=== PATIENT | female | born 1990 | race Caucasian/White ===

== ENCOUNTER 2025-02-15 12:47 | Emergency (ER) | payer MEDICAID, SELFPAY ==
[2025-02-15 12:57] VITALS: BP 115/77; PULSE 56; RESP 14; TEMP 36.4; O2SAT 99; BMI 24.3
--- NOTE | 2025-02-15 13:49 | XRR_ITS ---
PROCEDURE INFORMATION: Exam: XR Lumbosacral Spine Exam date and time: 02/15/2025 2:05 PM Age: 35 years old Clinical indication: Low back pain; Additional info: Chronic back pain TECHNIQUE: Imaging protocol: Radiologic exam of the lumbosacral spine. Views: 2 or 3 views. COMPARISON: CR XR thoracic spine 3V* [id number] 02/15/2025 1:59 PM FINDINGS: Bones/joints: Intact. No acute fracture. Normal alignment. Soft tissues: Unremarkable. XR/XR lumbar spine 2-3V* [id number] IMPRESSION: No acute findings.
--- NOTE | 2025-02-15 13:49 | XRR_ITS ---
PROCEDURE INFORMATION: Exam: XR Thoracic Spine Exam date and time: 02/15/2025 1:59 PM Age: 35 years old Clinical indication: Pain in thoracic spine; Additional info: Chronic back pain TECHNIQUE: Imaging protocol: Radiologic exam of the thoracic spine. Views: 3 views. COMPARISON: No relevant prior studies available. FINDINGS: Bones/joints: Intact. No acute fracture. Normal alignment. Soft tissues: Unremarkable. XR/XR thoracic spine 3V* [id number] IMPRESSION: No acute findings.
--- NOTE | 2025-02-15 13:50 | W.ED.GENADLT ---
HPI - General Adult General: Chief complaint: Back Pain/Injury Stated complaint: lump on R side, tingling in L hand Time Seen by Provider: 02/15/25 13:10 Source: patient Mode of arrival: ambulatory Limitations: no limitations History of Present Illness: Patient is a 35-year-old male presents to ED today with a plethora of medical complaints. She comes in with an outpatient order form for lumbar XRs from her primary care provider. She states for many years she has been having pain to her mid back. She reportedly spoke to her primary care provider about this. Her outpatient order form is for lumbar XRs which she seems frustrated with as her symptoms are more thoracic. She is requesting MRI imaging today. She also complains of a lump near her right ribs. She states she has nervelike pain when she bends over. She has been seen for this before and told that it is a lipoma. She also complains of migraine headaches. She states she used to see a neurologist in [place] but recently moved to the area. She has spoken to primary care about a referral to neurology and she believes she does have one of these placed but states they are booked up for a while . She has a complaint of bilateral hand paresthesias that reportedly started today although they are improving at time of my examination. Initially tells me that she felt this was secondary to a possible panic attack earlier but then later tells me it was her friend that suggested this could be the etiology and she, herself, does not believe this as she does not feel anxious. Again this are improving at time of examination. She also is having neurologic symptoms reporting an incident the other day when she sat her phone down and completely forgot or unrealized she had done this and then walked right past it and searched frantically for it before finding it. She also is having some right shoulder pain and right hip pain. Onset (ago): unknown (differing chronicity is based on complaint) Associated symptoms: Reports no associated symptoms and headache(s) (hx of migraines); Deny chest pain, confusion, dyspnea, nausea, palpitations, syncope or vomiting Related Data Home Medications ?Medication ?Instructions ?Recorded ?Confirmed zxhnemb-bnetkzzwguyhq-rgnqwdmq 250 3 tab PO Q6H PRN Headache 02/15/25 02/15/25 mg-250 mg-65 mg tablet (Excedrin Migraine) propranolol 60 mg capsule,24 60 mg PO DAILY 02/15/25 02/15/25 hr,extended release rizatriptan 10 mg disintegrating See Rx Instructions .Route 02/15/25 02/15/25 tablet .COMPLEX PRN Migraine Headache Allergies Allergy/AdvReac Type Severity Reaction Status Date / Time No Known Allergies Allergy Verified 02/15/25 13:02 Review of Systems Const: Denies: fever(s), chills or body aches Eyes: Denies: change in vision or blurry vision Card: Denies: chest pain, palpitations, lightheadedness, syncope or pre-syncope Resp: Denies: dyspnea GI: Denies: nausea or vomiting : Denies: flank pain, dysuria or hematuria Musc: Reports: back pain, joint pain (R shoulder, R hip) and other (hand paresthesias); Denies: neck pain, extremity pain, extremity swelling, joint swelling, joint redness, joint warmth, joint stiffness, limited range of motion, muscle cramps or muscle weakness Neuro: Reports: headache(s) (hx of migraines); Denies: weakness in extremities, lack of coordination, frequent falls, dizziness, confusion, behavioral changes, Slurred speech present, difficulty communicating thoughts, seizure-like activity or involuntary movements Physical Exam Const: COMMON NORMALS: no acute distress, average body habitus, patient oriented x3, no limitations, healthy appearing, alert and well nourished GENERAL APPEARANCE: cooperative ORIENTATION/CONSCIOUSNESS: Yes awake, Yes oriented to person, Yes oriented to place and Yes oriented to time OTHER: wearing sunglasses during entire examination HENMT: COMMON NORMALS: normocephalic and atraumatic HEAD & SCALP: normal to inspection, normocephalic and atraumatic FACE & SINUS: face symmetric Neck/C-Spine: COMMON NORMALS: full ROM, no lymphadenopathy, supple and no meningeal signs Chest: COMMONS NORMALS: normal inspection of the chest OTHER: pt has a benign appearing lipoma to R lateral chest wall Resp: COMMON NORMALS: normal respiratory effort and clear to auscultation bilaterally AUSCULTATION: clear to auscultation bilaterally Cardio: COMMON NORMALS: regular rate and regular rhythm RATE: regular rate RHYTHM: regular rhythm : COMMON NORMALS: Yes no CVA tenderness BLADDER/KIDNEY EXAM: Yes no CVA tenderness Back/Pelvis: COMMON NORMALS: no CVA tenderness, thoracic and lumbar spine normal to inspection, thoraco-lumbar ROM normal and straight leg raise negative bilaterally THORACIC SPINE/UPPER BACK: Yes thoracic spinal tenderness and Yes paraspinal muscle tenderness LUMBAR SPINE/LOWER BACK: No lumbar spinal tenderness, No paraspinal muscle tenderness and No paraspinal muscle spasm PELVIS: Yes buttocks normal and No sciatic notch tenderness SACROILIAC JOINTS: Yes SI joints normal SACRUM: no tenderness COCCYX: no tenderness Extremity: COMMON NORMALS: normal to inspection, full ROM and capillary refill normal GENERAL: Yes normal exam except as noted Neuro: NEGRITO COMA SCALE: document GCS findings [place] coma scale eye opening: Spontaneous [place] coma scale verbal response: Orientated [place] coma scale motor response: Obey commands [place] coma scale total score: 15 COMMON NORMALS: patient oriented x3, CN's II-XII intact bilaterally, moves all extremities, no focal motor deficits, no sensory deficits noted and gait normal SENSORIUM/ORIENTATION: Yes alert, Yes oriented to person, Yes oriented to place and Yes oriented to time MENINGEAL SIGNS: Yes no meningeal signs Skin: COMMON NORMALS: no rashes or lesions noted NARRATIVE SKIN EXAM: lipoma R lateral chest wall GENERAL SKIN EXAM: no rashes or lesions noted Course Vital Signs: Vital signs: Vital Signs Temperature 97.6 F 02/15/25 12:57 Pulse Rate 56 L 02/15/25 12:57 Respiratory Rate 14 02/15/25 12:57 Blood Pressure 115/77 02/15/25 12:57 Pulse Oximetry 99 02/15/25 12:57 Oxygen Delivery Me thod Room Air 02/15/25 12:57 [facility] - General Adult Medical Decision Making Patient here for multiple medical complaints-none of which sound emergent or life-threatening. She did have XRs of her thoracic and lumbar spine performed here. Personal interpretation of these is unremarkable. Recommend she follow-up with primary care for further evaluation of her many symptoms. Medical Records I reviewed the patient's medical records. Lab Data Radiology Impressions Lumbar Spine X-Ray 02/15/25 13:49 IMPRESSION: No acute findings. Thoracic Spine X-Ray 02/15/25 13:49 IMPRESSION: No acute findings. XR interpretation done by ED provider, pending radiology final review Discharge Plan Discharge Patient Disposition: Home Clinical Impression: Multiple complaints, Chronic mid back pain, Lipoma of lateral chest wall Condition: Stable Prescriptions: No Action propranolol 60 mg Capsule,Extended Release 24 Hr 60 mg PO DAILY rizatriptan 10 mg Tablet,Disintegrating See Rx Instructions .ROUTE .COMPLEX PRN (Reason: Migraine Headache) Rx Instructions: Dissolve 1 tablet on top of tongue at onset of headache. May repeat in 1 hour. Max 2 tablets in 24 hours. Excedrin Migraine 250-250-65 mg Tablet 3 tab PO Q6H PRN (Reason: Headache) Discharge Orders: Discharge ED (Routine); Ordered 02/15/25 Ordered By: Heidi Ortiz Referrals: Belle Morillo FNP [Primary Care Provider] - Activity Restrictions/Additional Instructions: You mentioned several physical complaints on today's visit including back pain, right shoulder pain, right hip pain, migraines, hand paresthesias, lipoma to your chest wall, and neurologic concerns. Most of these complaints would be best addressed by your primary care provider. From the emergency department, we screen and treat for emergent or life threatening conditions. The x-rays of your back today were unremarkable. 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
--- NOTE | 2025-02-15 14:16 | PC.PHAR ---
Pt states she also takes something twice daily for anxiety, that starts with Traz-----but neither [facility] in [place] or [facility] [place] have any record of it. Pt also said she used marijuana today to attempt stopping headache.
== END 2025-02-15 14:54 | disposition home or self-care (01) ==
PROVIDERS: Emergency Provider Physician Assistant; PCP Nurse Practitioner Family
DX: M54.9 Dorsalgia, unspecified (principal); D17.1 Benign lipomatous neoplasm of skin and subcutaneous tissue of trunk
CPT/HCPCS: 72072; 72100; 99283

== ENCOUNTER → 2025-03-06 15:01 | Outpatient (BNVA) | payer MEDICAID, SELFPAY | PROVIDERS: PCP Nurse Practitioner Family | DX: R53.83 Other fatigue (principal) | CPT/HCPCS: 86308 ==

== ENCOUNTER 2025-04-18 23:24 | Emergency (ER) | payer MEDICAID, SELFPAY ==
[2025-04-18 23:40] VITALS: BMI 23.5
--- NOTE | 2025-04-18 23:42 | ECG_ITS ---
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 Measurements Intervals [place] Rate: 89 P: 12 IN: 136 QRS: 49 QRSD: 87 T: 27 QT: 359 QTc: 437 Interpretive Statements SINUS RHYTHM LOW QRS VOLTAGE IN PRECORDIAL LEADS [QRS DEFLECTION < 1.0 mV IN CHEST LEADS] No previous ECG available for comparison Electronically Signed On 04-21-2025 06:20:46 CDT by Bryan Ho M.D. [email or web address]
--- NOTE | 2025-04-18 23:59 | XRR_ITS ---
PROCEDURE INFORMATION: Exam: XR Chest Exam date and time: 04/19/2025 1:23 AM Age: 35 years old Clinical indication: Pain; Chest pressure; Additional info: Chest pain TECHNIQUE: Imaging protocol: Radiologic exam of the chest. Views: 1 view. COMPARISON: CR XR thoracic spine 3V* [id number] 02/15/2025 1:59 PM FINDINGS: Lungs: Unremarkable. No consolidation. Pleural spaces: Unremarkable. No pleural effusion. No pneumothorax. Heart/Mediastinum: Unremarkable. No cardiomegaly. Bones/joints: Unremarkable. XR/XR chest 1V portable [id number] IMPRESSION: No acute findings.
--- NOTE | 2025-04-18 23:59 | XRR_ITS ---
PROCEDURE INFORMATION: Exam: XR Left Shoulder Exam date and time: 04/19/2025 1:23 AM Age: 35 years old Clinical indication: Pain; Shoulder; Left; Additional info: Shoulder pain TECHNIQUE: Imaging protocol: Radiologic exam of the left shoulder. Views: 2 or more views. COMPARISON: CR (CHEST, ) 04/19/2025 1:23 AM FINDINGS: Bones/joints: Normal. Soft tissues: Normal. XR/XR shoulder LT min 2V* [id number] IMPRESSION: No acute findings.
--- NOTE | 2025-04-19 00:34 | ECG_ITS ---
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 Measurements Intervals [place] Rate: 91 P: 6 [place]: 144 QRS: 43 QRSD: 84 T: 26 QT: 354 QTc: 437 Interpretive Statements SINUS RHYTHM LOW QRS VOLTAGE IN PRECORDIAL LEADS [QRS DEFLECTION < 1.0 mV IN CHEST LEADS] Compared to ECG 04/18/2025 23:42:53 No significant changes Electronically Signed On 04-21-2025 08:23:00 CDT by Kostas Mauricio M.D. [email or web address] [id number]
[2025-04-19 01:48] LABS: Basophils # 0.1 10^3/uL (0.0-0.1); Basophils % 0.7 %; Eosinophils # 0.3 10^3/uL (0.0-0.8); Eosinophils % 3.7 %; Hematocrit 40.5 % (36-47); Lymphocytes # 2.6 10^3/uL (0.8-4.8); Mean Corpuscular HGB Conc 32.6 g/dL (30-55); Mean Corpuscular Hemoglobin 31.1 pg (27-33); Mean Corpuscular Volume 95.3 fl (85-98); Mean Platelet Volume 9.8 fL (7.4-10.4); Monocytes # 0.6 10^3/uL (0.2-0.9); Monocytes % 8.2 %; Neutrophils # 3.22 10^3/uL (1.8-7.7); Neutrophils % 48.1 %; Nucleated Red Blood Cells % 0 %; Platelet Count 257 10^3/cmm (157-399); Red Blood Count 4.25 10^6/uL (3.85-5.65); Red Cell Distribution Width 12.7 % (12.1-15.1); White Blood Count 6.71 10^3/uL (3.29-11.43)
[2025-04-19 02:13] LABS: Alanine Aminotransferase 23 U/L (0-33); Albumin Level 4.5 g/dL (3.5-5.2); Alkaline Phosphatase 73 U/L (35-105); Anion Gap 15.5 (5-19); Aspartate Amino Transferase 19 U/L (0-32); Blood Urea Nitrogen 12 mg/dL (6-20); Calcium 9.1 mg/dL (8.5-10.5); Carbon Dioxide 22 mmol/L (22-29); Chloride 106 mmol/L (98-107); Creatinine Clr Calc Pharmacy 114.7266; Globulin 2.5 g/dL (1.3-4.6); Glomerular Filtration Rate 95.8 mL/min (90-130); Glucose 90 mg/dL (65-115); Osmolality Calculated 289 mOsm/kg (285-295); Potassium 3.5 mmol/L (3.5-5.1); Sodium 140 mmol/L (136-145)
[2025-04-19 02:16] LABS: Troponin(5th) Baseline < 6 ng/L (0-10)
[2025-04-19 02:40] VITALS: BP 110/78; PULSE 81; RESP 16; O2SAT 97
--- NOTE | 2025-04-19 02:48 | ED_ITS ---
HPI - Extremity Problem 2 General: Chief complaint: Extremity Problem,Nontraumatic Stated complaint: left shoulder pain Time Seen by Provider: 04/19/25 02:48 History of Present Illness: 35-year-old female who presents the [facility] room with left arm numbness and shoulder pain. This is started prior to arrival. Has resolved at the time I see her. She says she thinks it might have been anxiety. She is requesting a test Related Data Home Medications ?Medication ?Instructions ?Recorded ?Confirmed upskuzv-vyrvebbknppiw-jomkfedg 250 3 tab PO Q6H PRN He adache 02/15/25 04/05/25 mg-250 mg-65 mg tablet (Excedrin Migraine) propranolol 60 mg capsule,24 60 mg PO DAILY 02/15/25 0 04/05/25 hr,extended release rizatriptan 10 mg disintegrating See Rx Instructions . Route 02/15/25 04/05/25 tablet .COMPLEX PRN Migraine Headac he Previous Rx's ?Medication ?Instructions ?Recorded fluticasone propionate 50 1 spray intranasal BID #16 g anand 02/27/25 mcg/actuation nasal spray,suspension (Flonase Allergy Relief) albuterol sulfate 90 mcg/actuation 2 inh inhalation Q4 H PRN shortness 03/06/25 aerosol inhaler (Ventolin HFA) of breath or wheezing # 6.7 grams levofloxacin 750 mg tablet 750 mg PO DAILY 7 days #7 t abs 03/06/25 hydroxyzine pamoate 25 mg capsule 25 mg PO BID PRN anx iety #60 caps 04/05/25 (Vistaril) Allergies Allergy/AdvReac Type Severity Reaction Status Date / Time No Known Allergies Allergy Verified 04/18/25 23:43 Review of Systems 2 Narrative: Constitutional symptoms: Negative except as documented in HPI. Skin symptoms: Negative except as documented in HPI. Eye symptoms: Negative except as documented in HPI. ENMT symptoms: Negative except as documented in HPI. Respiratory symptoms: Negative except as documented in HPI. Cardiovascular symptoms: Negative except as documented in HPI. Gastrointestinal symptoms: Negative except as documented in HPI. Genitourinary symptoms: Negative except as documented in HPI. Musculoskeletal symptoms: Negative except as documented in HPI. Neurologic symptoms: Negative except as documented in HPI. Psychiatric symptoms: Negative except as documented in HPI. Endocrine symptoms: Negative except as documented in HPI. PFS ED 2 PFS: Medical History (Updated 04/19/25 @ 02:55 by Sherin Carroll MD) Psychiatric care Social History Smoking and tobacco/nicotine status: never used tobacco/nicotine Physical Exam 2 Narrative: EXAM NARRATIVE: General: Alert, no acute distress. Skin: Warm, dry. Head: Normocephalic, atraumatic. Neck: Supple, trachea midline. Eye: Extraocular movements are intact. Ears, nose, mouth and throat: mucosa moist. Cardiovascular: Regular, Normal peripheral perfusion. Respiratory: Lungs are clear to auscultation, respirations are non-labored, breath sounds are equal, Symmetrical chest wall expansion. Gastrointestinal: Soft, Nontender, Non distended Musculoskeletal: Normal ROM, no deformity. Neurological: Alert and oriented, No focal neurological deficit observed. Psychiatric: Cooperative, appropriate mood & affect. Course 2 Vital Signs: Vital signs: Vital Signs Pulse Rate 81 04/19/25 02:40 Respiratory Rate 16 04/19/25 02:40 Blood Pressure 110/78 04/19/25 02:40 Pulse Oximetry 97 04/19/25 02:40 Oxygen Delivery Me thod Room Air 04/19/25 02:40 MDM - Extremity (Nontraumatic) Medical Decision Making Differential diagnosis for patient with chest pain includes but is not limited to and based on the above HPI, review of systems and physical exam: Pneumonia. unstable angina. angina. Acute coronary syndrome / NM. Pulmonary embolism. Costochondritis / musculoskeletal. Pleurisy. Pericarditis. Esophageal spasm. Pancreatis. Cholecystitis. Orders placed to evaluate differential diagnosis based on the above differential, HPI and physical exam EKG: Time 2342. Rate 89. Normal sinus rhythm, No ST-T changes, no ectopy, normal IL & QRS intervals, This was reviewed and interpreted by myself the ER physician at 2348 Chest x-ray: No acute process. No infiltrate. No pneumothorax. This was reviewed and interpreted by myself the emergency room physician. I also reviewed the radiology report. Shoulder x-ray: No acute process. This was reviewed and interpreted by myself the emergency room physician. I also reviewed the radiology report. Lab Review: Laboratory results were reviewed and interpreted by myself the emergency room physician. No leukocytosis. No anemia. No renal failure. Troponin is negative for I reviewed the patient's medical record. Assessment and plan: Left shoulder pain/anxiety - Discharged home - Discussed plan with patient. Answered any questions. - Evaluation and treatment of this problem were appropriate in the emergency setting. Lab Data 04/19/25 01:43 04/19/25 01:43 Laboratory Results WBC 6.71 10^3/uL (3.29-11.43) 04/19/25 01:43 RBC 4.25 10^6/uL (3.85-5.65) 04/19/25 01:43 Hgb 13.20 g/dL (11.27-16.99) 04/19/25 01:43 Hct 40.5 % (36-47) 04/19/25 01:43 MCV 95.3 fl (85-98) 04/19/25 01:43 MCH 31.1 pg (27-33) 04/19/25 01:43 MCHC 32.6 g/dL (30-55) 04/19/25 01:43 RDW 12.7 % (12.1-15.1) 04/19/25 01:43 Plt Count 257 10^3/cmm (157-399) 04/19/25 01:43 MPV 9.8 fL (7.4-10.4) 04/19/25 01:43 Neut % (Auto) 48.1 % 04/19/25 01:43 Lymph % (Auto) 39.0 % 04/19/25 01:43 Gage % (Auto) 8.2 % 04/19/25 01:43 Eos % (Auto) 3.7 % 04/19/25 01:43 Baso % (Auto) 0.7 % 04/19/25 01:43 Neut # (Auto) 3.22 10^3/uL (1.8-7.7) 04/19/25 01:43 Lymph # (Auto) 2.6 10^3/uL (0.8-4.8) 04/19/25 01:43 Gage # (Auto) 0.6 10^3/uL (0.2-0.9) 04/19/25 01:43 Eos # (Auto) 0.3 10^3/uL (0.0-0.8) 04/19/25 01:43 Baso # (Auto) 0.1 10^3/uL (0.0-0.1) 04/19/25 01:43 Nucleated RBC % (auto) 0 % 04/19/25 01:43 Nucleated RBCs # 0.0 /100WBC 04/19/25 01:43 Sodium 140 mmol/L (136-145) 04/19/25 01:43 Potassium 3.5 mmol/L (3.5-5.1) 04/19/25 01:43 Chloride 106 mmol/L (98-107) 04/19/25 01:43 Carbon Dioxide 22 mmol/L (22-29) 04/19/25 01:43 Anion Gap 15.5 (5-19) 04/19/25 01:43 BUN 12 mg/dL (6-20) 04/19/25 01:43 Creatinine 0.7 mg/dL (0.5-0.9) 04/19/25 01:43 GFR Calculation 95.8 mL/min (90-130) 04/19/25 01:43 Glucose 90 mg/dL (65-115) 04/19/25 01:43 Calculated Osmolality 289 mOsm/kg (285-295) 04/19/25 01:43 Calcium 9.1 mg/dL (8.5-10.5) 04/19/25 01:43 AST 19 U/L (0-32) 04/19/25 01:43 ALT 23 U/L (0-33) 04/19/25 01:43 Alkaline Phosphatase 73 U/L (35-105) 04/19/25 01:43 Troponin T Baseline < 6 ng/L (0-10) 04/19/25 01:43 Total Protein 7.0 g/dL (6.6-8.7) 04/19/25 01:43 Albumin 4.5 g/dL (3.5-5.2) 04/19/25 01:43 Globulin 2.5 g/dL (1.3-4.6) 04/19/25 01:43 All radiology interpretation(s) finalized by discharge Discharge Plan Discharge Patient Disposition: Home Clinical Impression: Left arm pain Condition: Stable Prescriptions: No Action levofloxacin 750 mg tablet 750 mg PO DAILY 7 Days Qty: 7 0RF albuterol sulfate [Ventolin HFA] 90 mcg/actuation HFA aerosol inhaler 2 inh inhalation Q4H PRN (Reason: shortness of breath or wheezing) Qty: 6.7 0RF fluticasone propionate [Flonase Allergy Relief] 50 mcg/actuation spray,suspension 1 spray intranasal BID Qty: 16 0RF Rx Instructions: administer into each nostril hydroxyzine pamoate [Vistaril] 25 mg capsule 25 mg PO BID PRN (Reason: anxiety) Qty: 60 3RF propranolol 60 mg Capsule,Extended Release 24 Hr 60 mg PO DAILY rizatriptan 10 mg Tablet,Disintegrating See Rx Instructions .ROUTE .COMPLEX PRN (Reason: Migraine Headache) Rx Instructions: Dissolve 1 tablet on top of tongue at onset of headache. May repeat in 1 hour. Max 2 tablets in 24 hours. Excedrin Migraine 250-250-65 mg Tablet 3 tab PO Q6H PRN (Reason: Headache) Discharge Orders: Discharge ED (Routine); Ordered 04/19/25 Ordered By: Sherin Carroll Referrals: Belle Morillo FNP [Primary Care Provider, Family Practice] Discharge Diet: Usual diet Discharge Activity: Increase activity as tolerated Patient Instructions: Opioid Safety, Pain Management Activity Restrictions/Additional Instructions: Thank you for choosing [facility] for your healthcare needs today. You have been screened and evaluated and felt safe for discharge. Health conditions do change or evolve sometimes and as such it is important that you follow up with your Primary Doctor to be re checked, 3-5 days is a general good time frame for follow up. You are always welcome to return to the ED for re assessment if your symptoms are worsening or you have new concerns Print Language: [place] Island[place] Coding Level of Care Code ED Manufacturing Supervisor 2Nd Shift for Dayday Adler
[2025-04-19 03:05] LABS: HCG, Serum Qual Negative (Negative)
[2025-04-19 03:24] VITALS: BP 110/75; PULSE 75; RESP 16; O2SAT 99
[2025-04-19 05:04] LABS: Total Bilirubin 0.2 mg/dL (0.15-1.2)
== END 2025-04-19 03:25 | disposition home or self-care (01) ==
PROVIDERS: Emergency Provider Emergency Medicine; PCP Nurse Practitioner Family
DX: M79.602 Pain in left arm (principal)
CPT/HCPCS: 36415; 71045; 73030; 80053; 84484; 84703; 85025; 93005; 99285

== ENCOUNTER 2025-05-17 09:07 | Outpatient (CLI) | payer MEDICAID, SELFPAY | END 2025-05-17 09:08 | disposition home or self-care (01) | LOC: LAB 05-24 07:07 | PROVIDERS: PCP Nurse Practitioner Family; Visit Provider Psychiatry & Neurology Neurology | DX: G43.909 Migraine, unspecified, not intractable, without status migrainosus (principal); E55.9 Vitamin D deficiency, unspecified; E53.8 Deficiency of other specified B group vitamins | CPT/HCPCS: 36415; 82306; 82607; 82746; 83735; 83921; 84439; 84443; 84481 ==

== ENCOUNTER 2025-06-27 09:03 | Emergency (ER) | payer MEDICAID, SELFPAY ==
[2025-06-27 09:23] VITALS: BP 98/70; PULSE 84; TEMP 36.7; O2SAT 99; BMI 22.7
--- OUTSIDE RECORDS SUMMARY | 2025-06-27 09:24 | XMS_ITS | Patient Health Record ---
Author Organization [facility] Billing Depart ment Address [address] [place] [address] Care Team Providers Care House Manager Name Role Phone ERIK DEL REAL Primary Care Provider Carol Bautista Unavailable [phone] Louisa Ortiz Unavailable Unavailable Allergies No Known Allergies Reason For Referral No Information Medications Medication SIG (Take, Route, Frequency, Duration) Notes Start Date End Date Status Voltaren 1 % 2grams Externally fo ur times a day; Duration: 30 days Active Social History Alcohol Screen (Audit-C) Question Answer Notes Did you have a drink containing alcohol in the p ast year? No Problems Problem Type SNOMED Code ICD Code Onset Dates Problem Status W/U Status Risk Notes Problem Degeneration of lumbar intervertebral disc (49030392) Disc degeneration , lumbar (M51.36) Active confirmed Problem Pain in thoracic spine (092082871) Thoracic spine pain (M54.6) Active confirmed Problem Thoracic outlet syndrome of right thoracic outlet (63925890495800250) Thoracic outlet syndrome of right thoracic outlet (G54.0) Active confirmed Encounters Encounter Location Date Provider Diagnosis [place] - [facility] [address] [place] [address] 09/03/2024 Louisa Ortiz Strain of thoracic back region S29.012A ; Thoracic spine pain M54.6 and Acute midline low back pain without sciatica M54.50 Assessments Encounter Date Diagnosis (ICD Code) Assessment Notes Treatment Notes Treatment Clinical Notes Section Notes 09/03/2024 Thoracic spine pain (ICD-10 - M54.6) 34 y/o F following up for thoracic and lumbar pain that has been ongoing since April 2024. Since her last visit, she has been performing formal PT, but notes she is now having worsening pain in the thoracic spine. Reports episodes of her back giving out when she is performing PT exercises such as planks. Also reports exacerbation of thoracic pain with dry needling. She also notes her new born is growing and lifting her child has exacerbated her back pain. - Given that patient is continuing to have thoracic and lumbar pain that is worsening with a physical therapy, a T spine and L spine MRI are indicated at this time. Patient was advised to follow-up after her MRI's. Was provided a refill of topical voltaren. Will consider a referral to pain management to consider epidural steroid injections at her next visit. - Transcribed by Puneet Alexander MA, LAT, ATC, OTC 09/03/2024 Strain of thoracic back region (ICD-10 - S29.012A) I will prescribe an oral anti-inflammatory at this time. Patient denies any history of gastric distress or contraindications to use of NSAIDs. Discontinue NSAID's if the patient notices black tarry or bloody stools, dyspepsia or stomach ache. Their primary care physician should evaluate patient if they need prolonged NSAID use for symptomatic relief. 34 y/o F following up for thoracic and lumbar pain that has been ongoing since April 2024. Since her last visit, she has been performing formal PT, but notes she is now having worsening pain in the thoracic spine. Reports episodes of her back giving out when she is performing PT exercises such as planks. Also reports exacerbation of thoracic pain with dry needling. She also notes her new born is growing and lifting her child has exacerbated her back pain. - Given that patient is continuing to have thoracic and lumbar pain that is worsening with a physical therapy, a T spine and L spine MRI are indicated at this time. Patient was advised to follow-up after her MRI's. Was provided a refill of topical voltaren. Will consider a referral to pain management to consider epidural steroid injections at her next visit. - Transcribed by Puneet Alexander MA, LAT, ATC, OTC 09/03/2024 Acute midline low back pain without sciatica (ICD-10 - M54.50) 34 y/o F following up for thoracic and lumbar pain that has been ongoing since April 2024. Since her last visit, she has been performing formal PT, but notes she is now having worsening pain in the thoracic spine. Reports episodes of her back giving out when she is performing PT exercises such as planks. Also reports exacerbation of thoracic pain with dry needling. She also notes her new born is growing and lifting her child has exacerbated her back pain. - Given that patient is continuing to have thoracic and lumbar pain that is worsening with a physical therapy, a T spine and L spine MRI are indicated at this time. Patient was advised to follow-up after her MRI's. Was provided a refill of topical voltaren. Will consider a referral to pain management to consider epidural steroid injections at her next visit. - Transcribed by Puneet Alexander MA, LAT, ATC, OTC Plan Of Treatment Pending Test Test Name Order Date MRI : Lumbar Spine without contrast ([id number]) 09/03/2024 Physical Therapy 12/31/2023 Physical Therapy 06/25/2024 Physical/Occupational Therapy 04/09/2024 Physical/Occupational Therapy 06/18/2024 MR THORACIC SPINE WITHOUT CONTRAST 09/03 Insurance Providers Payer Name Payer Address Payer Phone Subscriber Number Group Number Insured Name Patient Relationship to Insured Coverage Start Date Coverage End Date [facility] [address] [place] [phone] [id number] Dipti Garcia Self - patient is the insured 4 Medical (General) History Medical History History ICD Code Past Medical History: Anxiety,Asthma,Res piratory Problems Past Medical History: Anxiety,Asthma Past Medical History: Anxiety,Asthma,KEYONA D,Respiratory Problems
--- NOTE | 2025-06-27 10:57 | W.ED.HA ---
HPI - Headache General: Chief Complaint: Headache Stated Complaint: migraine x4 days Time Seen by Provider: 06/27/25 09:07 Source: patient Mode of arrival: ambulatory Limitations: no limitations History of Present Illness: Patient is a 35-year-old female presents to ED today with complaint of migraine headache. She states she began developing a headache 3 days ago. She states pain worsened today. She states pain is worse with light and sound. She states her headache was feeling like a typical migraine headache until this morning when it worsened in severity. Patient is not having any neck pain. No fevers. She is currently rating her pain at a 5/10. States she was normally on propranolol for headaches per her neurologist, Dr. Pacheco took her off of this medication. She was also on sumatriptan at one point but feels this is not working. Upon arrival and during my examination with patient she seems agitated. She has a blindfold over her eyes and tells me to stop asking such fucking obnoxious questions because she has a headache and is having a difficult time thinking . MD elicited complaint: headache and migraine Pertinent past history: migraines Onset (ago): day(s) Severity: moderate Pain scale (0-10): 5 Exacerbating factors: light and noise Relieving factors: nothing Associated symptoms: Deny fever(s), lightheadedness, malaise, nausea, pre-syncope, syncope or vomiting Treatments prior to arrival: none Related Data Home Medications ?Medication ?Instructions ?Recorded ?Confirmed axbkscj-ruboqsailpwmm-glaopvnm 250 3 tab PO Q6H PRN Headache 02/15/25 06/13/25 mg-250 mg-65 mg tablet (Excedrin Migraine) propranolol 60 mg capsule,24 60 mg PO DAILY 02/15/25 06/13/25 hr,extended release sumatriptan succinate 50 mg tablet 50 mg PO ONCE 05/17/25 06/13/25 Previous Rx's ?Medication ?Instructions ?Recorded fluticasone propionate 50 1 spray intranasal BID #16 grams 02/27/25 mcg/actuation nasal spray,suspension (Flonase Allergy Relief) hydroxyzine pamoate 25 mg capsule 25 mg PO BID PRN anxiety #60 caps 05/16/25 (Vistaril) olanzapine 5 mg disintegrating 5 mg PO DAILY PRN severe anxiety 06/14/25 tablet and agitation #30 tabs albuterol sulfate 90 mcg/actuation 2 inh inhalation Q4H PRN shortness 06/27/25 aerosol inhaler of breath or wheezing #6.7 grams okmyilcitw-vaizxdihpmdar-pcpxtfrg 1 - 2 cap PO Q8H PRN pain #14 caps 06/27/25 50 mg-300 mg-40 mg capsule (Fioricet) rimegepant 75 mg disintegrating 75 mg PO ONCE PRN migraine 06/27/25 tablet headache #8 tabs Allergies Allergy/AdvReac Type Severity Reaction Status Date / Time No Known Allergies Allergy Verified 06/27/25 09:30 Review of Systems Const: Denies: fever(s), chills, body aches, fatigue or malaise Eyes: Reports: photophobia; Denies: change in vision, blurry vision, floaters or seeing flashes Card: Denies: palpitations, lightheadedness, syncope or pre-syncope GI: Denies: nausea or vomiting Musc: Denies: neck pain Neuro: Reports: headache(s); Denies: numbness in extremities, weakness in extremities, sensory changes or dizziness PFSH ED PFSH: Medical History (Updated 06/27/25 @ 12:24 by ENRIQUE Do) Generalized anxiety disorder Psychiatric care Social History Smoking and tobacco/nicotine status: never used tobacco/nicotine Physical Exam Const: COMMON NORMALS: no acute distress, average body habitus, patient oriented x3, no limitations, healthy appearing, alert and well nourished GENERAL APPEARANCE: cooperative and other (agitated) ORIENTATION/CONSCIOUSNESS: Yes awake, Yes oriented to person, Yes oriented to place and Yes oriented to time HENMT: COMMON NORMALS: normocephalic and atraumatic HEAD & SCALP: normal to inspection, normocephalic and atraumatic FACE & SINUS: normal facial exam Eye: COMMON NORMALS: Equal, round and reactive pupils present and EOMs intact bilaterally GENERAL EYE: appearance normal, both eyes and all related structures and normal light reflex PUPIL: Yes Equal, round and reactive pupils present DIRECT OPHTHALMOSCOPY: Yes normal light reflex Neck/C-Spine: COMMON NORMALS: full ROM, no lymphadenopathy and no meningeal signs GENERAL: Yes normal visual inspection Resp: COMMON NORMALS: normal respiratory effort and clear to auscultation bilaterally AUSCULTATION: clear to auscultation bilaterally Cardio: COMMON NORMALS: regular rate and regular rhythm RATE: regular rate RHYTHM: regular rhythm Extremity: GENERAL: Yes normal exam except as noted Neuro: [place]GR[place] COMA SCALE: document GCS findings [place] coma scale eye opening: Spontaneous [place] coma scale verbal response: Orientated [place] coma scale motor response: Obey commands [place] coma scale total score: 15 COMMON NORMALS: patient oriented x3, CN's II-XII intact bilaterally, moves all extremities, no focal motor deficits, no sensory deficits noted and gait normal SENSORIUM/ORIENTATION: Yes alert, Yes oriented to person, Yes oriented to place and Yes oriented to time MENINGEAL SIGNS: Yes no meningeal signs Skin: COMMON NORMALS: no rashes or lesions noted GENERAL SKIN EXAM: no rashes or lesions noted Course Vital Signs: Vital signs: Vital Signs Temperature 98.1 F 06/27/25 09:23 Pulse Rate 76 06/27/25 12:00 Blood Pressure 109/75 06/27/25 12:00 Pulse Oximetry 99 06/27/25 12:00 Oxygen Delivery Me thod Room Air 06/27/25 12:00 MDM - Headache Medical Decision Making Patient had been ordered IV fluids and Reglan/DHE but after the IV fluids and Reglan she states she feels 100% better and would like to go home. She was not given the DHE. Her agitation has resolved and she is much more pleasant upon discharge. She is requesting something that she may use at home for migraines so we will prescribe her Fioricet. She is also wanting a refill of her albuterol inhaler due to allergy induced asthma. She had also told RN during her stay that she was having some complaints of dysuria thus urinalysis was performed and this was unremarkable. Urine negative. Medical Records I reviewed the patient's medical records. Lab Data I reviewed the patient's lab results. Laboratory Results HCG, Qual Negative (Negative) 06/27/25 11:40 Urine Color Yellow (Yellow) 06/27/25 11:40 Urine Appearance Clear (CLEAR) 06/27/25 11:40 Urine pH 8.0 (5-7) A 06/27/25 11:40 Ur Specific [place] 1.006 (1.005-1.030) 06/27/25 11:40 Urine Protein Negative (Negative) 06/27/25 11:40 Urine Glucose (UA) Negative (Normal) 06/27/25 11:40 Urine Ketones Negative (Negative) 06/27/25 11:40 Urine Blood Negative (Negative) 06/27/25 11:40 Urine Nitrate Negative (Negative) 06/27/25 11:40 Urine Bilirubin Negative (Negative) 06/27/25 11:40 Urine Urobilinogen 0.2 mg/dL (Negative) 06/27/25 11:40 Ur Leukocyte Esterase Negative (Negative) 06/27/25 11:40 Urine RBC 0-2 /hpf (0-2) 06/27/25 11:40 Urine WBC 0-5 /hpf (0-5) 06/27/25 11:40 Ur Squamous Epith Cells 0-5 /hpf (0-5) 06/27/25 11:40 Amorphous Sediment Not Reportable 06/27/25 11:40 Urine Bacteria None seen /hpf (NONE) 06/27/25 11:40 Hyaline Casts 0-4 /lpf H 06/27/25 11:40 No radiology studies performed this visit Discharge Plan Discharge Patient Disposition: Home Clinical Impression: Headache, migraine Condition: Stable Prescriptions: New fgagdswsgv-iymbhrwsnhfme-muny [Fioricet] 50-300-40 mg capsule 1 - 2 cap PO Q8H PRN (Reason: pain) Qty: 14 0RF Rx Instructions: Max 6 caps/day Continued albuterol sulfate 90 mcg/actuation HFA aerosol inhaler 2 inh inhalation Q4H PRN (Reason: shortness of breath or wheezing) Qty: 6.7 0RF No Action sumatriptan succinate 50 mg tablet 50 mg PO ONCE fluticasone propionate [Flonase Allergy Relief] 50 mcg/actuation spray,suspension 1 spray intranasal BID Qty: 16 0RF Rx Instructions: administer into each nostril hydroxyzine pamoate [Vistaril] 25 mg capsule 25 mg PO BID PRN (Reason: anxiety) Qty: 60 3RF olanzapine 5 mg tablet,disintegrating 5 mg PO DAILY PRN (Reason: severe anxiety and agitation) Qty: 30 0RF Rx Instructions: PRN Severe anxiety and agitation rimegepant 75 mg tablet,disintegrating 75 mg PO ONCE PRN (Reason: migraine headache) Qty: 8 3RF Rx Instructions: Do not exceed 75mg in a 24 hour period. propranolol 60 mg Capsule,Extended Release 24 Hr 60 mg PO DAILY Excedrin Migraine 250-250-65 mg Tablet 3 tab PO Q6H PRN (Reason: Headache) Discharge Orders: Discharge ED (Routine); Ordered 06/27/25 Ordered By: Heidi Ortiz Patient Instructions: Patient Portal & Qian Instructions, Headache - Migraine (Adult) Print Language: Romanian Coding Level of Care Code ED Mail Processing Machine Operator for Dayday Adler
[2025-06-27 11:05] VITALS: BP 102/78; PULSE 86; O2SAT 99
[2025-06-27] MEDS: metoclopramide 5 mg/mL SDV 2 mL 10 MG IVP (11:36)
[2025-06-27 12:00] VITALS: BP 109/75; PULSE 76; O2SAT 99
[2025-06-27 12:08] LABS: Glucose Urine UA Negative (Normal); Nitrate Urine Negative (Negative); Specific Gravity, Urine 1.006 (1.005-1.030)
[2025-06-27 12:10] LABS: Add Urine Microscopic? YES; HCG Qualitative Urine. Negative (Negative)
[2025-06-27 12:40] VITALS: BP 100/68; PULSE 72; O2SAT 100
== END 2025-06-27 12:41 | disposition home or self-care (01) ==
PROVIDERS: Emergency Provider Physician Assistant
DX: G43.909 Migraine, unspecified, not intractable, without status migrainosus (principal)
CPT/HCPCS: 36415; 81001; 81025; 96361; 96374; 99284; J2765; J7040

== ENCOUNTER → 2025-07-07 12:00 | Outpatient (BNVA) | payer MEDICAID, SELFPAY | PROVIDERS: Referring Provider Psychiatry & Neurology Neurology; Visit Provider Internal Medicine | DX: R07.9 Chest pain, unspecified (principal) | CPT/HCPCS: 93005 ==

== ENCOUNTER → 2025-07-21 13:21 | Outpatient (BNVA) | payer MEDICAID, SELFPAY | PROVIDERS: Visit Provider Clinical Nurse Specialist Adult Health | DX: N92.6 Irregular menstruation, unspecified (principal); B37.31 Acute candidiasis of vulva and vagina | CPT/HCPCS: 81025; 87070; 87205 ==

== ENCOUNTER → 2025-08-11 13:47 | Outpatient (BNVA) | payer MEDICAID, SELFPAY | PROVIDERS: PCP Clinical Nurse Specialist Adult Health; Visit Provider Family Medicine | DX: Z32.00 Encounter for pregnancy test, result unknown (principal); R30.0 Dysuria; N89.8 Other specified noninflammatory disorders of vagina; N39.0 Urinary tract infection, site not specified; Z20.2 Contact with and (suspected) exposure to infections with a predominantly sexual mode of transmission | CPT/HCPCS: 81000; 84702; 86592; 86695; 86696; 86705; 86706; 86709; 86803; 87086; 87340; 87491; 87591; 87806 ==

== ENCOUNTER 2025-08-31 08:17 | Outpatient (CLI) | payer MEDICAID, SELFPAY ==
--- NOTE | 2025-08-31 11:15 | USCV_ITS ---
Dipti Garcia Age: 35 Gender: F : 1990 Exam Date: 08/31/2025 08:31 Ordering Phys: Shoaib Don M.D ([email or web address]) Technologist: ALLY Exam Location: [facility] [place] Indication: Syncope BP: 108 / 72 HR: 60 Rhythm: Sinus Technical Quality: Adequate MEASUREMENTS (Male / Female) Normal Values 2D ECHO LV Diastolic Diameter PLAX 4.8 cm 4.2 - 5.9 / 3.9 - 5.3 cm IVS Diastolic Thickness 0.8 cm 0.6 - 1.0 / 0.6 - 0.9 cm IVS Systolic Thickness 0.7 cm LVPW Diastolic Thickness 0.9 cm 0.6 - 1.0 / 0.6 - 0.9 cm LVPW Systolic Thickness 1.0 cm LVOT Diameter 2.0 cm LV Ejection Fraction 2D Teich 44.3 % LV Ejection Fraction MOD 4C 61.7 % LV Ejection Fraction MOD 2C 65.4 % LV Ejection Fraction 2C AL 67.7 % LA Diameter 3.0 cm RA Systolic Volume 4C AL 29.4 ml RA Systolic Volume 4C MOD 27.7 ml LA Sys Volume AL 29.7 cm cubed LA Sys Volume Index AL 16.5 cm cubed/m squared Aorta at Sinotubular Diameter 2.8 cm IVC Diameter 1.7 cm M-MODE LA Ao Ratio MM 1.1 AV Cusp Separation MM 1.7 cm DOPPLER AV Peak Velocity 99.0 cm/s LVOT Peak Velocity 89.0 cm/s AV Area Cont Eq vti 2.7 cm squared AV Area Cont Eq pk 2.7 cm squared MV Peak Velocity 85.0 cm/s MV Area PHT 3.9 cm squared Mitral E to A Ratio 1.6 TR Peak Velocity 162.0 cm/s TR Peak Gradient 10.5 mmHg TV Peak E Velocity 85.0 cm/s PV Peak Velocity 95.0 cm/s FINDINGS Left Ventricle Normal left ventricular size, systolic function and wall thickness, with no regional wall motion abnormalities. Left ventricular ejection fraction is estimated at 60 %. Normal diastolic function. Right Ventricle Normal right ventricular size and systolic function. Right Atrium Normal right atrial size. Left Atrium Normal left atrial size. IA Septum Normal appearance of the interatrial septum. Mitral Valve Normal mitral valve structure. No mitral valve stenosis or regurgitation. Aortic Valve Normal aortic valve structure. No aortic valve stenosis or regurgitation. Tricuspid Valve Normal tricuspid valve structure. No tricuspid valve stenosis or regurgitation. Normal pulmonary pressure. Pulmonic Valve Normal pulmonic valve structure. No pulmonic valve stenosis or regurgitation. Pericardium No pericardial effusion. Aorta Normal diameter of the aortic root and ascending thoracic aorta. IVC Normal IVC diameter. CONCLUSIONS Normal left ventricular size, systolic function and wall thickness, with no regional wall motion abnormalities. Left ventricular ejection fraction is estimated at 60 %. Normal diastolic function. No significant valvular abnormalities. There is no pericardial effusion. Right atrial pressure is around 5 mm of mercury. Santhosh Gray MD (Electronically Signed) Final Date: 06 September 2025 17:25 S
== END 2025-08-31 08:18 | disposition home or self-care (01) ==
PROVIDERS: PCP Clinical Nurse Specialist Adult Health; Visit Provider Internal Medicine
DX: R55 Syncope and collapse (principal)
CPT/HCPCS: 93306